=== PATIENT | female | born 1985 | race Caucasian/White ===

== ENCOUNTER 2017-02-04 04:15 | Emergency (ER) | payer MEDICAID, OTHER ==
[2017-02-04 04:43] LABS: CHLORIDE,CL 104 mmol/L (98-110); SODIUM,NA 137 mmol/L (136-146)
--- NOTE | 2017-02-04 05:44 | EDM.PDOC ---
ED HPI GENERAL MEDICAL PROBLEM - General Chief Complaint: Chest Pain Stated Complaint: CHEST PAIN Time Seen by Provider: 02/04/17 05:44 - History of Present Illness INITIAL COMMENTS - FREE TEXT/NARRATIVE: HISTORY AND PHYSICAL: History of present illness: Patient 31-year-old white female presented to chest pain this is vaguely described but no associated shortness of breath palpitations nausea vomiting diaphoresis or other concern Review of systems: As per history of present illness and below otherwise all systems reviewed and negative. Past medical history: As per history of present illness and as reviewed below otherwise noncontributory. Surgical history: As per history of present illness and as reviewed below otherwise noncontributory. Social history: No reported history of drug or alcohol abuse. Family history: As per history of present illness and as reviewed below otherwise noncontributory. Physical exam: HEENT: Atraumatic, normocephalic, pupils reactive, negative for conjunctival pallor or scleral icterus, mucous membranes moist, throat clear, neck supple, nontender, trachea midline. Lungs: Clear to auscultation, breath sounds equal bilaterally, chest nontender. Heart: S1S2, regular, negative for clicks, rubs, or JVD. Abdomen: Soft, nondistended, nontender. Negative for masses or hepatosplenomegaly. Negative for costovertebral tenderness. Pelvis: Stable nontender. Genitourinary: Deferred. Rectal: Deferred. Extremities: Atraumatic, negative for cords or calf pain. Neurovascular unremarkable. Neuro: Awake, alert, oriented. Cranial nerves II through XII unremarkable. Cerebellum unremarkable. Motor and sensory unremarkable throughout. Exam nonfocal. Diagnostics: CBC CMP PT/INR troponin chest x-ray EKG Therapeutics: None Impression: #1 atypical chest pain Definitive disposition and diagnosis as appropriate pending reevaluation and review of above. 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: Musculoskeletal History: Reports: None Neurological History: Reports: None Psychiatric History: Reports: Anxiety, Depression Endocrine/Metabolic History: Reports: None Hematologic History: Reports: None Immunologic History: Reports: None Oncologic (Cancer) History: Reports: None Dermatologic History: Reports: None - Infectious Disease History Infectious Disease History: Reports: None - Past Surgical History Female Surgical History: Reports: section Social & Family History - Family History Family Medical History: Noncontributory - Tobacco Use Smoking Status *Q: Current Every Day Smoker Years of Tobacco use: 12 Packs/Tins Daily: 0.5 - Caffeine Use Caffeine Use: Reports: None - Recreational Drug Use Recreational Drug Use: Yes Drug Use in Last 12 Months: Yes Recreational Drug Type: Reports: Marijuana/Hashish ED ROS GENERAL - Review of Systems Review Of Systems: ROS reveals no pertinent complaints other than HPI. ED EXAM, GENERAL - Physical Exam Exam: See Below Course - Vital Signs Last Recorded V/S: Last Vital Signs Temp 36.1 C 02/04/17 04:26 Pulse 69 02/04/17 04:59 Resp 18 02/04/17 04:59 BP 136/92 H 02/04/17 04:59 Pulse Ox 100 02/04/17 04:59 - Orders/Labs/Meds Orders: Active Orders 24 hr Category Date Time Status Cardiac Monitoring [RC] . DIRECTED Care 02/04/17 04:19 Active EKG Documentation Completion [RC] STAT Care 02/04/17 04:18 Active Chest 1V Frontal [CR] Stat Exams 02/04/17 04:19 Taken Labs: Laboratory Tests 02/04/17 02/04/17 02/04/17 Range/Units 04:22 04:22 04:22 WBC 8.68 (4.0-11.0) K/uL RBC 4.38 (4.30-5.90) M/uL Hgb 13.4 (12.0-16.0) g/dL Hct 39.7 (36.0-46.0) % MCV 90.6 (80.0-98.0) fL MCH 30.6 (27.0-32.0) pg MCHC 33.8 (31.0-37.0) g/dL RDW Std Deviation 42.6 (28.0-62.0) fl RDW Coeff of Grzegorz 13 (11.0-15.0) % Plt Count 286 (150-400) K/uL MPV 9.00 (7.40-12.00) fL Neut % (Auto) 42.1 L (48.0-80.0) % Lymph % (Auto) 43.8 H (16.0-40.0) % [place] % (Auto) 10.9 (0.0-15.0) % Eos % (Auto) 3.0 (0.0-7.0) % Baso % (Auto) 0.2 (0.0-1.5) % Neut # 3.7 (1.4-5.7) K/uL Lymph # 3.8 H (0.6-2.4) K/uL [place] # 1.0 H (0.0-0.8) K/uL Eos # 0.3 (0.0-0.7) K/uL Baso # 0.0 (0.0-0.1) K/uL Nucleated RBC % 0.0 /100WBC Nucleated RBCs # 0 K/uL INR 1.02 (0.86-1.11) Sodium 137 (136-146) mmol/L Potassium 3.3 L (3.5-5.1) mmol/L Chloride 104 (98-110) mmol/L Carbon Dioxide 22 (21-31) mmol/L BUN 9 (6.0-23.0) mg/dL Creatinine 1.0 (0.6-1.5) mg/dL Est Cr Clr Drug Dosing 80.59 mL/min Estimated GFR (MDRD) > 60.0 ml/min Glucose 121 H (60-110) mg/dL Calcium 8.9 (8.8-10.8) mg/dL Total Bilirubin 0.4 (0.1-1.5) mg/dL AST 26 (5-40) IU/L ALT 24 (8-54) IU/L Alkaline Phosphatase 88 (40-150) CK-MB (CK-2) 4.6 (0-6.6) ng/ml Troponin I (0.0-0.29) NG/ML Total Protein 7.6 (6.0-8.0) g/dL Albumin 4.1 (3.5-5.0) g/dL Globulin 3.5 (2.0-3.5) g/dL Albumin/Globulin Ratio 1.2 L (1.3-2.8) 02/04/17 Range/Units 04:22 WBC (4.0-11.0) K/uL RBC (4.30-5.90) M/uL Hgb (12.0-16.0) g/dL Hct (36.0-46.0) % MCV (80.0-98.0) fL MCH (27.0-32.0) pg MCHC (31.0-37.0) g/dL RDW Std Deviation (28.0-62.0) fl RDW Coeff of Grzegorz (11.0-15.0) % Plt Count (150-400) K/uL MPV (7.40-12.00) fL Neut % (Auto) (48.0-80.0) % Lymph % (Auto) (16.0-40.0) % [place] % (Auto) (0.0-15.0) % Eos % (Auto) (0.0-7.0) % Baso % (Auto) (0.0-1.5) % Neut # (1.4-5.7) K/uL Lymph # (0.6-2.4) K/uL [place] # (0.0-0.8) K/uL Eos # (0.0-0.7) K/uL Baso # (0.0-0.1) K/uL Nucleated RBC % /100WBC Nucleated RBCs # K/uL INR (0.86-1.11) Sodium (136-146) mmol/L Potassium (3.5-5.1) mmol/L Chloride (98-110) mmol/L Carbon Dioxide (21-31) mmol/L BUN (6.0-23.0) mg/dL Creatinine (0.6-1.5) mg/dL Est Cr Clr Drug Dosing mL/min Estimated GFR (MDRD) ml/min Glucose (60-110) mg/dL Calcium (8.8-10.8) mg/dL Total Bilirubin (0.1-1.5) mg/dL AST (5-40) IU/L ALT (8-54) IU/L Alkaline Phosphatase (40-150) CK-MB (CK-2) (0-6.6) ng/ml Troponin I < 0.10 (0.0-0.29) NG/ML Total Protein (6.0-8.0) g/dL Albumin (3.5-5.0) g/dL Globulin (2.0-3.5) g/dL Albumin/Globulin Ratio (1.3-2.8) Departure - Departure Time of Disposition: 05:43 Disposition: Home, Self-Care 01 Condition: good Clinical Impression: Atypical chest pain Forms: ED Department Discharge Additional Instructions: The following information is given to patients seen in the emergency department who are being discharged to home. This information is to outline your options for follow-up care. We provide all patients seen in our emergency department with a follow-up referral. The need for follow-up, as well as the timing and circumstances, are variable depending upon the specifics of your emergency department visit. If you don't have a primary care physician on staff, we will provide you with a referral. We always advise you to contact your personal physician following an emergency department visit to inform them of the circumstance of the visit and for follow-up with them and/or the need for any referrals to a consulting specialist. The emergency department will also refer you to a specialist when appropriate. This referral assures that you have the opportunity for followup care with a specialist. All of these measure are taken in an effort to provide you with optimal care, which includes your followup. Under all circumstances we always encourage you to contact your private physician who remains a resource for coordinating your care. When calling for followup care, please make the office aware that this follow-up is from your recent emergency room visit. If for any reason you are refused follow-up, please contact the [facility] emergency department at and asked to speak to the emergency department charge nurse. Followup primary medical doctor one to 2 days return as needed as - My Orders Last 24 Hours: My Active Orders 02/04/17 04:18 EKG Documentation Completion [RC] STAT 02/04/17 04:19 Cardiac Monitoring [RC] . DIRECTED Chest 1V Frontal [CR] Stat - Assessment/Plan Last 24 Hours: My Active Orders 02/04/17 04:18 EKG Documentation Completion [RC] STAT 02/04/17 04:19 Cardiac Monitoring [RC] . DIRECTED Chest 1V Frontal [CR] Stat
[2017-02-04 06:02] VITALS: BP 132/101
--- NOTE | 2017-02-04 15:57 | CR ---
EXAM DATE: 02/04/17 PATIENT'S AGE: 31 Patient: [facility] Facility: [place], [place] Site . Site : 1985 Study: XRay Chest [id number]/9/2017 4:34:54 AM Ordering Physician: Doctor Barros Final Report: INDICATION: CHEST PAIN TECHNIQUE: Chest 1 view COMPARISON: None FINDINGS: Cardiovascular and mediastinum: Heart size and vasculature are normal in caliber and appearance. Mediastinum is within normal limits. Lungs and pleural space: No focal consolidation. No sign of pleural effusion. No pneumothorax. Bones and soft tissues: Remote healed posterolateral 4th through 7th right rib fractures. IMPRESSION: No acute cardiopulmonary disease. Dictated by Carter John MD @ 02/04/2017 5:35:03 AM Dictated by: aCrter John MD @ 02/04/2017 05:35:14 (Electronic Signature) Report Signed by Proxy and Original Signed Document filed in the Medical Record. MTDD
== END 2017-02-04 06:00 | disposition home or self-care (01) ==
LOC: MW.ED 04:15
DX: R07.89 Other chest pain (principal); F17.210 Nicotine dependence, cigarettes, uncomplicated
CPT/HCPCS: 36415; 71010; 71010-26; 80053; 82553; 84484; 85025; 85610; 93005; 99284; 99285-25

== ENCOUNTER → 2017-02-05 | Outpatient (CLI) | payer MEDICAID, OTHER | LOC: MW.CHIM 14:31 | PROVIDERS: ATTEND Internal Medicine | DX: R07.9 Chest pain, unspecified (principal) | CPT/HCPCS: 36415; 85379 ==

== ENCOUNTER → 2017-02-16 | Outpatient (CLI) | payer MEDICAID, OTHER ==
--- NOTE | 2017-02-16 18:32 | PCM.PRNOTE ---
- Free Text/Narrative Note: Exercise ECG Indication CP Patient was brought to the stress test lab in postabsorptive state verbal and paper consent was obtained from patient Vital signs at resting state blood pressure of 118/80 with a heart rate of 78 EKG shows sinus rhythm no ST changes no Q waves Maximal heart rate of 164and target heart rate is159 Patient reached the target heart rate, completed stage IV Adrián protocol Peak blood pressure is 132/84 Total exercise time of 9.[address] changes with a peak heart rate no arrhythmia METS 10.1 Patient complained of chest pain during exercise on the right sided chest wall, no radiation and seemed to subside when termination of the test Impression Normal hemodynamics, normal chronotropic, excellent exercise capacity, negative for ischemia on EKG Plan Echo pending
--- NOTE | 2017-02-17 16:18 | ECHO ---
The echocardiogram report can be seen in this patient's EMR in the Reports section. JUSTIN
== END ==
LOC: MW.NM 09:04
PROVIDERS: ATTEND Internal Medicine
DX: R07.9 Chest pain, unspecified (principal)
CPT/HCPCS: 93306

== ENCOUNTER → 2017-03-19 | Outpatient (CLI) | payer MEDICAID, OTHER ==
[2017-03-19 09:14] LABS: CHLORIDE,CL 106 mmol/L (98-110); SODIUM,NA 138 mmol/L (136-146)
== END ==
LOC: MW.CHIM 08:25
PROVIDERS: ATTEND Internal Medicine
DX: I42.8 Other cardiomyopathies (principal); I43 Cardiomyopathy in diseases classified elsewhere; R07.9 Chest pain, unspecified
CPT/HCPCS: 36415; 80048; 80061; 83036; 83880; 84443; 85610

== ENCOUNTER 2017-06-12 19:40 | Emergency (ER) | payer MEDICAID ==
[2017-06-12] MEDS ORDERED: Sodium Chloride 0.9% 10 ML Syringe FLUSH PRN (19:58)
[2017-06-12] MEDS ORDERED: Aspirin 81 MG Tab.Chew PO ONE (19:58)
[2017-06-12] MEDS ORDERED: Sodium Chloride 0.9% 2.5 ML Syringe FLUSH PRN (19:58)
[2017-06-12] MEDS ORDERED: Sodium Chloride 0.9% 500 ML IV SCH (20:00)
--- NOTE | 2017-06-12 20:03 | EDM.PDOC ---
ED HPI GENERAL MEDICAL PROBLEM - General Chief Complaint: Cardiovascular Problem Stated Complaint: DIZZY AND LOW BLOOD PRESSURE Time Seen by Provider: 06/12/17 19:49 - History of Present Illness INITIAL COMMENTS - FREE TEXT/NARRATIVE: HISTORY AND PHYSICAL: History of present illness: The patient is a 32-year-old female who is well known to our hospital as she follows with our cotton expert Dr. 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 The patient presents today because of low blood pressure which has been on and off over the last several weeks. The patient states she saw Dr. Christie yesterday who adjusted her medications by doubling her Ranexa and discontinuing her isosorbide for blood pressures in the 70s. The patient last had labs and EKG performed on April 30 which I reviewed. Currently in the ED the patient presented because she was concerned about a low blood pressure of 70/42 for which she did not pass out or blackout and had no headache neck pain or shortness of breath nausea or vomiting. The patient has had episodic chest pain which is not new and has been ongoing for over 2 months. She currently has no chest pain in the ED. She states that after that initial blood pressure she retook it and it was 96/39 and currently in the ED she is 130s over 80s. The patient states that there is nothing new about the symptoms but she was pressured by family to come here for evaluation. She's been eating and drinking normally and has no vomiting diarrhea upper respiratory symptoms or fevers. The patient states these episodes of hypotension are well known to her and her cotton expert and there is not necessarily anything different today. Please note that the patient did see the providers in [facility] this past Wednesday and they offered to admit her at that time and do the surgery but she wanted to address some things at home and they felt comfortable letting her do that. Review of systems: As per history of present illness and below otherwise all systems reviewed and negative. Past medical history: As per history of present illness and as reviewed below otherwise noncontributory. Surgical history: As per history of present illness and as reviewed below otherwise noncontributory. Social history: No reported history of drug or alcohol abuse. Family history: As per history of present illness and as reviewed below otherwise noncontributory. Physical exam: Gen.: Well-developed well-nourished female who is nontoxic and vital signs were noted by me. HEENT: Atraumatic, normocephalic, negative for conjunctival pallor or scleral icterus, mucous membranes moist, throat clear, neck supple, nontender, trachea midline. Lungs: Clear to auscultation, breath sounds equal bilaterally, chest nontender. Heart: S1S2, regular rate and rhythm no overt murmurs Abdomen: Soft, nondistended, nontender. Negative for masses or hepatosplenomegaly. NABS Pelvis: Stable nontender. Genitourinary: Deferred. Rectal: Deferred. Extremities: Atraumatic, negative for cords or calf pain. Neurovascular unremarkable. No pedal edema Neuro: Awake, alert, oriented. Cranial nerves II through XII unremarkable. Cerebellum unremarkable. Motor and sensory unremarkable throughout. Exam nonfocal. Skin: Normal turgor no evidence of any rashes or lesions and no diaphoresis Diagnostics: EKG which was compared to one performed on April 30, CBC CMP chest x-ray INR troponin Therapeutics: IV O2 monitor IV fluids aspirin As the patient is not having chest pain I will not give her any nitrates and she actually declines receiving nitrates she knows it will lower her blood pressure. 2049: On reevaluation the patient is stable with her vitals and currently does not have any chest pain or shortness of breath just feels somewhat drained a little bit lightheaded. She says that that is not new and she's been dealing with that for the last few weeks. I have offered her admission for serial troponins and EKGs and monitoring of her blood pressure as that information would be helpful to Dr. Christie on Wednesday when readjusting her medications. The patient is unsure if she feels that anything is significantly different that she wants to be admitted for and she is thinking about this. She understands the risk involved with discharge and the benefits with admission. 2103: After consideration and our lengthy conversation, the patient has decided that she would like to defer admission at this time. She understands the risks involved with doing that and agrees to return if the symptoms return or if anything progresses or changes. I will advise her to contact Dr. Christie on Wednesday potential medication reevaluation and further care. Impression: Episodic hypotension with history of calcified LAD aneurysm Definitive disposition and diagnosis as appropriate pending reevaluation and review of above. chest Pain Score (Numeric/FACES): 6 - Related Data Allergies Allergy/AdvReac Type Severity Reaction Status Date / Time No Known Allergies Allergy Verified 02/04/17 04:25 Home Meds: Home Meds Losartan [Cozaar] 12.5 mg PO DAILY 06/12/17 [History] Metoprolol/Hydrochlorothiazide [Metoprolol-HCTZ 50-25 MG] 25 mg PO DAILY [History] Ranolazine [Ranexa] 1,000 mg PO DAILY 06/12/17 [History] Varenicline Tartrate [Chantix] 06/12/17 [History] Past Medical History HEENT History: Reports: None Cardiovascular History: Reports: [place] Respiratory History: Reports: None Gastrointestinal History: Reports: Other (See Below) Other Gastrointestinal History: Umbilical Hernia Genitourinary History: Reports: None 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: Reports: Musculoskeletal History: Reports: None Neurological History: Reports: None Psychiatric History: Reports: Anxiety, Depression Endocrine/Metabolic History: Reports: None Hematologic History: Reports: None Immunologic History: Reports: None Oncologic (Cancer) History: Reports: None Dermatologic History: Reports: None - Infectious Disease History Infectious Disease History: Reports: Chicken Pox - Past Surgical History Female Surgical History: Reports: Section Social & Family History - Family History Family Medical History: Noncontributory - Tobacco Use Smoking Status *Q: Current Every Day Smoker Years of Tobacco use: 20 Packs/Tins Daily: 0.2 - Caffeine Use Caffeine Use: Reports: None - Recreational Drug Use Recreational Drug Use: No Drug Use in Last 12 Months: Yes Recreational Drug Type: Reports: Marijuana/Hashish ED ROS GENERAL - Review of Systems Review Of Systems: ROS reveals no pertinent complaints other than HPI. ED EXAM, GENERAL - Physical Exam Exam: See Below (See dictation) Course - Vital Signs Last Recorded V/S: Last Vital Signs Temp 36.8 C 06/12/17 19:46 Pulse 78 06/12/17 20:49 Resp 18 06/12/17 20:49 BP 115/78 06/12/17 20:49 Pulse Ox 100 06/12/17 20:49 - Orders/Labs/Meds Orders: Active Orders 24 hr Category Date Time Status Cardiac Monitoring [RC] . DIRECTED Care 06/12/17 19:57 Active EKG Documentation Completion [RC] STAT Care 06/12/17 19:57 Active Oxygen Therapy, ED [RC] ASDIRECTED Care 06/12/17 19:57 Active Pulse Oximetry [RC] ASDIRECTED Care 06/12/17 19:57 Active Chest 1V Frontal [CR] Stat Exams 06/12/17 19:58 Taken Sodium Chloride 0.9% [Normal Saline] 500 ml Med 06/12/17 20:00 Active IV STAT Sodium Chloride 0.9% [Saline Flush] Med 06/12/17 19:58 Active 10 ml FLUSH ASDIRECTED PRN Sodium Chloride 0.9% [Saline Flush] Med 06/12/17 19:58 Active 2.5 ml FLUSH ASDIRECTED PRN Saline Lock Insert [OM.PC] Stat Oth 06/12/17 19:57 Ordered Medication Orders Sodium Chloride (Normal Saline) 500 mls @ 999 mls/hr IV STAT PEÑA Last Admin: 06/12/17 20:17 Dose: 999 mls/hr Sodium Chloride (Saline Flush) 10 ml FLUSH ASDIRECTED PRN PRN Reason: Keep Vein Open Sodium Chloride (Saline Flush) 2.5 ml FLUSH ASDIRECTED PRN PRN Reason: Keep Vein Open Labs: Laboratory Tests 06/12/17 06/12/17 06/12/17 Range/Units 20:09 20:09 20:09 WBC 6.43 (4.0-11.0) K/uL RBC 4.06 L (4.30-5.90) M/uL Hgb 12.4 (12.0-16.0) g/dL Hct 36.7 (36.0-46.0) % MCV 90.4 (80.0-98.0) fL MCH 30.5 (27.0-32.0) pg MCHC 33.8 (31.0-37.0) g/dL RDW Std Deviation 42.8 (28.0-62.0) fl RDW Coeff of Grzegorz 13 (11.0-15.0) % Plt Count 228 (150-400) K/uL MPV 8.80 (7.40-12.00) fL Neut % (Auto) 64.8 (48.0-80.0) % Lymph % (Auto) 22.1 (16.0-40.0) % [place] % (Auto) 10.0 (0.0-15.0) % Eos % (Auto) 2.8 (0.0-7.0) % Baso % (Auto) 0.3 (0.0-1.5) % Neut # (Auto) 4.2 (1.4-5.7) K/uL Lymph # (Auto) 1.4 (0.6-2.4) K/uL [place] # (Auto) 0.6 (0.0-0.8) K/uL Eos # (Auto) 0.2 (0.0-0.7) K/uL Baso # (Auto) 0.0 (0.0-0.1) K/uL Nucleated RBC % 0.0 /100WBC Nucleated RBCs # 0 K/uL INR 0.98 (0.86-1.11) Sodium 136 (136-146) mmol/L Potassium 3.8 (3.5-5.1) mmol/L Chloride 107 (98-110) mmol/L Carbon Dioxide 24 (21-31) mmol/L BUN 10 (6.0-23.0) mg/dL Creatinine 0.8 (0.6-1.5) mg/dL Est Cr Clr Drug Dosing 103.55 mL/min Estimated GFR (MDRD) > 60.0 ml/min Glucose 122 H (60-110) mg/dL Calcium 8.7 L (8.8-10.8) mg/dL Total Bilirubin 0.4 (0.1-1.5) mg/dL AST 18 (5-40) IU/L ALT 19 (8-54) IU/L Alkaline Phosphatase 76 (40-150) Troponin I (0.0-0.29) NG/ML Total Protein 6.8 (6.0-8.0) g/dL Albumin 3.8 (3.5-5.0) g/dL Globulin 3.0 (2.0-3.5) g/dL Albumin/Globulin Ratio 1.3 (1.3-2.8) // Range/Units 20:09 WBC (4.0-11.0) K/uL RBC (4.30-5.90) M/uL Hgb (12.0-16.0) g/dL Hct (36.0-46.0) % MCV (80.0-98.0) fL MCH (27.0-32.0) pg MCHC (31.0-37.0) g/dL RDW Std Deviation (28.0-62.0) fl RDW Coeff of Grzegorz (11.0-15.0) % Plt Count (150-400) K/uL MPV (7.40-12.00) fL Neut % (Auto) (48.0-80.0) % Lymph % (Auto) (16.0-40.0) % [place] % (Auto) (0.0-15.0) % Eos % (Auto) (0.0-7.0) % Baso % (Auto) (0.0-1.5) % Neut # (Auto) (1.4-5.7) K/uL Lymph # (Auto) (0.6-2.4) K/uL Mac[place] # (Auto) (0.0-0.8) K/uL Eos # (Auto) (0.0-0.7) K/uL Baso # (Auto) (0.0-0.1) K/uL Nucleated RBC % /100WBC Nucleated RBCs # K/uL INR (0.86-1.11) Sodium (136-146) mmol/L Potassium (3.5-5.1) mmol/L Chloride (98-110) mmol/L Carbon Dioxide (21-31) mmol/L BUN (6.0-23.0) mg/dL Creatinine (0.6-1.5) mg/dL Est Cr Clr Drug Dosing mL/min Estimated GFR (MDRD) ml/min Glucose (60-110) mg/dL Calcium (8.8-10.8) mg/dL Total Bilirubin (0.1-1.5) mg/dL AST (5-40) IU/L ALT (8-54) IU/L Alkaline Phosphatase (40-150) Troponin I < 0.10 (0.0-0.29) NG/ML Total Protein (6.0-8.0) g/dL Albumin (3.5-5.0) g/dL Globulin (2.0-3.5) g/dL Albumin/Globulin Ratio (1.3-2.8) Meds: Medications Generic Name Dose Route Start Last Admin Trade Name Freq PRN Reason Stop Dose Admin Sodium Chloride 500 mls @ 999 mls/hr 06/12/17 20:00 06/12/17 20:17 Normal Saline IV 999 mls/hr STAT PEÑA Administration Sodium Chloride 10 ml 06/12/17 19:58 Saline Flush FLUSH ASDIRECTED PRN Keep Vein Open Sodium Chloride 2.5 ml 06/12/17 19:58 Saline Flush FLUSH ASDIRECTED PRN Keep Vein Open Discontinued Medications Generic Name Dose Route Start Last Admin Trade Name Freq PRN Reason Stop Dose Admin Aspirin 324 mg 06/12/17 19:58 06/12/17 20:16 Aspirin PO 06/12/17 19:59 324 mg ONETIME ONE Administration Departure - Departure Time of Disposition: 21:06 Disposition: Home, Self-Care 01 Condition: Good Clinical Impression: Hypotensive episode Forms: ED Department Discharge Additional Instructions: The following information is given to patients seen in the emergency department who are being discharged to home. This information is to outline your options for follow-up care. We provide all patients seen in our emergency department with a follow-up referral. The need for follow-up, as well as the timing and circumstances, are variable depending upon the specifics of your emergency department visit. If you don't have a primary care physician on staff, we will provide you with a referral. We always advise you to contact your personal physician following an emergency department visit to inform them of the circumstance of the visit and for follow-up with them and/or the need for any referrals to a consulting specialist. The emergency department will also refer you to a specialist when appropriate. This referral assures that you have the opportunity for followup care with a specialist. All of these measure are taken in an effort to provide you with optimal care, which includes your followup. Under all circumstances we always encourage you to contact your private physician who remains a resource for coordinating your care. When calling for followup care, please make the office aware that this follow-up is from your recent emergency room visit. If for any reason you are refused follow-up, please contact the [facility] emergency department at and ask to speak to the emergency department charge nurse. [facility] Primary care- Internal Medicine and Family [facility] [address] [place] [address] Please return to ER as needed and as discussed. Please contact Dr. Christie our cotton expert to be reevaluated on Wednesday morning as we discussed. Please continue to monitor your blood pressures - My Orders Last 24 Hours: My Active Orders 06/12/17 19:57 Cardiac Monitoring [RC] . DIRECTED EKG Documentation Completion [RC] STAT Oxygen Therapy, ED [RC] ASDIRECTED Pulse Oximetry [RC] ASDIRECTED Saline Lock Insert [OM.PC] Stat 06/12/17 19:58 Chest 1V Frontal [CR] Stat Sodium Chloride 0.9% [Saline Flush] 10 ml FLUSH ASDIRECTED PRN Sodium Chloride 0.9% [Saline Flush] 2.5 ml FLUSH ASDIRECTED PRN 06/12/17 20:00 Sodium Chloride 0.9% [Normal Saline] 500 ml IV STAT - Assessment/Plan Last 24 Hours: My Active Orders 06/12/17 19:57 Cardiac Monitoring [RC] . DIRECTED EKG Documentation Completion [RC] STAT Oxygen Therapy, ED [RC] ASDIRECTED Pulse Oximetry [RC] ASDIRECTED Saline Lock Insert [OM.PC] Stat 06/12/17 19:58 Chest 1V Frontal [CR] Stat Sodium Chloride 0.9% [Saline Flush] 10 ml FLUSH ASDIRECTED PRN Sodium Chloride 0.9% [Saline Flush] 2.5 ml FLUSH ASDIRECTED PRN 06/12/17 20:00 Sodium Chloride 0.9% [Normal Saline] 500 ml IV STAT
[2017-06-12 20:40] LABS: CHLORIDE,CL 107 mmol/L (98-110); SODIUM,NA 136 mmol/L (136-146)
[2017-06-12 22:33] VITALS: BP 114/74
--- NOTE | 2017-06-14 11:30 | CR ---
EXAM DATE: 06/12/17 PATIENT'S AGE: 32 Patient: RAVIN [place] Facility: [place], [place] Site . Site : 1985 Study: XRay Chest [id number]/[id number] 8:17:12 PM Ordering Physician: Loren Ro Final Report: INDICATION: Chest pain and shortness of breath TECHNIQUE: Chest 1 view. COMPARISON: 04/30/2017 FINDINGS: Cardiovascular and mediastinum: Heart size and vasculature are normal in caliber and appearance. Mediastinum is within normal limits. Lungs and pleural space: Lungs are clear. No sign of infiltrate or mass. No sign of pleural effusion. No pneumothorax. Bones and soft tissues: Remote right upper rib fractures. IMPRESSION: Unremarkable chest. Dictated by Andrew Pierce MD @ 06/12/2017 8:23:06 PM Dictated by: Andrew Pierce MD @ 06/12/2017 20:23:10 (Electronic Signature) Report Signed by Proxy. JUSTIN
== END 2017-06-12 21:20 | disposition home or self-care (01) ==
LOC: MW.ED 19:40
DX: I95.9 Hypotension, unspecified (principal); I25.41 Coronary artery aneurysm; F41.9 Anxiety disorder, unspecified; I25.2 Old myocardial infarction; F32.9 Major depressive disorder, single episode, unspecified; F17.210 Nicotine dependence, cigarettes, uncomplicated; Z98.890 Other specified postprocedural states; Z79.899 Other long term (current) drug therapy
CPT/HCPCS: 36415; 71010; 80053; 84484; 85025; 85610; 93005; 96360; 99285; A9270; J7040; 99283